=== PATIENT | female | born 1995 | race Asian ===

== ENCOUNTER 2023-12-16 04:16 | Emergency (ER) | payer OTHER ==
[~2023-12-16] VITALS: Ht 154.9 cm; Wt 81.8 kg
[2023-12-16] MEDS: KETOROLAC TROMETHAMINE 30 MG/ML VIAL IVP ONE (05:18)
[2023-12-16] MEDS: ETOMIDATE 2 MG/ML 10 ML VIAL IVP ONE (05:18)
[2023-12-16 05:37] LABS: BASOPHILS % (AUTO) 0.3 % (0.0-2.0); EOSINOPHILS % (AUTO) 0.1 % (1.0-6.0); HEMATOCRIT 43.6 % (36-46); HEMOGLOBIN 14.3 g/dL (12.0-16.0); LYMPHOCYTES # (AUTO) 1.6 K/uL (1.0-4.8); LYMPHOCYTES % (AUTO) 6.8 % (22.0-44.0); MEAN CORPUSCULAR HEMOGLOBIN 29.4 pg (26.0-34.0); MEAN CORPUSCULAR HGB CONC 32.9 G/dL (31.0-37.0); MEAN CORPUSCULAR VOLUME 89 fL (80-100); MONOCYTES # (AUTO) 0.8 K/uL (0.1-1.0); MONOCYTES % (AUTO) 3.4 % (2.0-9.0); PLATELET COUNT (AUTO) 321 K/uL (150-450); RED BLOOD CELL COUNT(AUTO) 4.87 MIL/uL (4.00-5.20); RED CELL DISTRIBUTION WIDTH 13.9 % (11.5-14.5); WHITE BLOOD COUNT (AUTO) 23.5 K/uL (4.5-11.0)
[2023-12-16 05:39] LABS: NEUTROPHILS % (AUTO) 89.4 % (40.0-70.0)
[2023-12-16 05:47] LABS: ANION GAP 13 mmol/L (8-16); CALCIUM, TOTAL 9.2 mg/dL (8.8-10.5); CARBON DIOXIDE 25 mmol/L (22-29); CHLORIDE 102 mmol/L (98-107); CREATININE 0.69 mg/dL (0.60-1.30); GLOMERULAR FILTR. RATE CALC > 60 mL/min (>60); GLUCOSE,RANDOM 118 mg/dL (70-110); POTASSIUM 3.9 mmol/L (3.5-5.1); SODIUM SERUM 140 mmol/L (136-145); UREA NITROGEN, BLOOD 17 mg/dL (7-18)
[2023-12-16 06:05] VITALS: O2SAT 98
[2023-12-16] MEDS ORDERED: HYDR-4723 PO (06:24)
[2023-12-16] MEDS ORDERED: IBUP-1554 PO (06:24)
[2023-12-16 06:26] VITALS: BP 107/73; PULSE 85; RESP 17
== END 2023-12-16 07:09 | disposition home or self-care (01) ==
LOC: EMS 04:18
DX: I10 Essential (primary) hypertension (principal)
CPT/HCPCS: 99285; 24600; 80048; 84703; 85025; 36415; 73030; 73070; 73080; 99152; J3490; J1885